=== PATIENT | female | born 1930 | race Caucasian/White ===

== ENCOUNTER 2016-10-01 13:00 | Outpatient (CLI) | payer MEDICARE, OTHER ==
--- NOTE | 2016-10-01 22:28 | CONSULTATION NOTE ---
Palliative Care Consultation - Referral Referring Provider: Jessica TORREZ Time of Visit: [id number] Referral setting: Assisted living (Patient is seen at [facility] which is an assisted living for Dementia, it is an impossible task to get her out of facililty currently with agitation 2 to dementia) Referral Reason: Dementia with behavioral disturbances - Information Sources Records Reviewed: RN notes reviewed, Old records reviewed History obtained from: Family (Daughter Barbara provided most of the information) Exam limitations: Clinical condition (Patient with agitation, refusing to allow physical exam "go away") - History of Present Illness Brief History of Present Illness: This is an 85 year old woman with progressive dementia with behavioral disturbances who has been at [facility] dementia care for about a year. Daughter has been overseeing and managing her care related this for about 10 years, and sees significant decline both functional and cognitive over the year necessitating placement here, and most acutely over the last several weeks. As part of her journey, she suspect she has had underlying depression for years, even as a young woman and had been well functioning with support of her . In 2006 with the decline of her it had become apparent she was having problems and they both moved to [place] in 2007, where they were for about 2 years. She had some episode described at "psychotic break" and was hospitalized, this included leaving with the car, hallucinations, and though declined psych admit was at that time put on risperadone.. They lived [place] at [place] [facility], until he in 2012 with hospice. She was seen by a neurologist that titrated her off the risperadone and used prazosin, which made a significant difference for her, she was able to participate in adult day program "[facility]", she really enjoys music, and actually able to ride the paratransit there. They moved her back to [place] with the hope to improve her socialization (experiencing many deaths/loss) at [facility], but she continued to decline, was having more hallucinations, but did respond to increased in prazosin, but with increased care needs moved into [facility]. Unfortunately with disease progression, rarely recognizes daughter, and at times sees her as "responsible for all the bad things". She is often cooperative for Memo her FRANCA. She has had a recent fall, intake has been less, behaviors have been escalating as far as agitation, not letting staff do personal care, and easily agitated when approached with conversation. She does have very poor hearing and cataracts so is often "startled" and unable to center herself in her environment. Daughter feels patient responded badly to antipsychotics in past, has had some improvement on increase prazosin, has not been on lorazepam recently but would like to avoid if possible. Medical/Surgical History - Past Medical History Cardiovascular: reports: Hypertension Respiratory: reports: None Neuro: reports: Dementia (See hpi) Endocrine/Autoimmune: reports: None GI: reports: None LEATHER ETCHER: reports: None : reports: Incontinence HEENT: reports: Chronic vision loss, Dental implants Psych: reports: Depression, Anxiety Musculoskeletal: reports: Osteoarthritis Derm: reports: None MRSA Hx?: No - Past Surgical History /LEATHER ETCHER: reports: Hysterectomy Cardiovascular: reports: Coronary stent - Substance History Use: Uses substance without health or social issues: Tobacco (quit 1969), Alcohol (rarely in past, none currently) Social History - Living Situation Living arrangement: Assisted living (has been at [facility] for about a year) Living Situation: With caregiver(s) Support System: Daughter Barbara who is a small engine trainer with dementia/Crystal Salinas has good understanding of mother's disease, she oversees her care here on [facility]. Has four children Family History - Family History Family History: Mother: , Father: , [place] (age 52), Sister: , Cancer, Brother: , Cancer, Other family: , COPD/ Emphysema Medications/Allergies - Medications Home Medications: Ambulatory Orders Medication Instructions Recorded Confirmed Acetaminophen 2 tab PO Q6HR PRN 10/01/16 10/01/16 Acetaminophen 500 mg PO TID 10/01/16 10/01/16 Aspirin 81 mg PO DAILY 10/01/16 10/01/16 Bisacodyl Supp [Dulcolax Supp] 1 supp GA DAILY 10/01/16 10/01/16 Loperamide HCl [Loperamide] 2 mg PO BID 10/01/16 10/01/16 Mag Hydrox/Al Hydrox/Simeth 30 ml PO Q4HR PRN 10/01/16 10/01/16 [Antacid Suspension] Polyethylene Glycol 3350 [Miralax] 0.25 appful PO DAILY 10/01/16 10/01/16 Prazosin HCl 2 mg PO TID 10/01/16 10/01/16 - Allergies Allergies/Adverse Reactions: Allergies Allergy/AdvReac Type Severity Reaction Status Date / Time simvastatin Allergy Unknown Verified 10/02/16 06:06 Review of Systems - Constitutional Constitutional: reports: Weakness, Poor appetite, Weight loss - Eyes Eyes: reports: Vision loss, Dipolpia (due to cataracts) - Ears, Nose & Throat Ears, Nose & Throat: reports: Hearing loss - Cardiovascular Cariovascular: reports: Syncope, Decr. exercise tolerance. denies: Chest pain - Respiratory Respiratory: reports: SOB with exertion. denies: Cough - Gastrointestinal Gastrointestinal: reports: Constipation, Poor appetite - Genitourinary Genitourinary: reports: Incontinence - Musculoskeletal Musculoskeletal: reports: Stiffness (left let), Limited range of motion (left arm), Muscle weakness - Integumentary Integumentary: reports: Dryness, Other (difficulty getting to shower) - Neurological Neurological: reports: General weakness, Memory problems - Psychiatric Psychiatric: reports: Depression, Anxiety, Hallucinations - Endocrine Endocrine: reports: Intolerance to cold - Hematologic/Lymphatic Hematologic/Lymphatic: denies: Recurrent infections - All Other Systems All Other Systems: reports: Reviewed and negative Physical Examination - Physical Exam General Appearance: positive: Mild distress, Anxious (would not cooperate with vital signs wanted me to "go away") Eyes Bilateral: positive: Other (difficulty focusing on me) ENT: positive: Dry mucous membranes Neck: positive: Trachea midline Respiratory: positive: Other (unable to listen, appeared increase breathlessness with more exertion) Cardiovascular: positive: Regular rate & rhythm (radially) Abdomen: positive: Other (flat) Skin: positive: Pallor, Dryness, Other (hair unwashed) Extremities: positive: Other (patient in bed, would not get up. Moved in bed and extremeties. Staff reports she is able to walk short distances to the table) . negative: No pedal edema Neurologic/Psychiatric: positive: Disoriented to person, Disoriented to place, Disoriented to time, Depressed mood/affect, Other (redirected and attempted to engage several times, focused on daughter "coming" she was not present for the exam and she needed to nap. When distracted did sing for me, talked about daughter's singing, denied any problems other than i was botheringher) Palliative Care - POLST Patient has POLST: Yes POLST Status: DNR, Comfort Measures (Want to avoid hospitalization if at all possible) Pain: Comment (unknown, but does appear stiff,will trial acetaminophen) Drowsiness: Moderate (4-6), Comment (staff report sleeping more going to be late , up late and more napping) Anorexia: Moderate (4-6) (eating less per staff) Constipation: Yes (has needed suppositories) Feelings of wellbeing/Perceived Quality of Life: Worsening (per daughter's perception) Performance Status: Patient with recent fall, has been walking shorter distances, does at time toilet self. Perception of staff and daughter much weaker over last several months - Palliative Care Discussion: Surrogate decision maker [Barbara Reeder, daughter]. Patient/Family understanding of the illness [Daughter very familiar with expected course, though at one point thought would last for years, see imminent decline coming]. Information preferences [Likes to be included in all decisions/discussions ( daugher)]. Most important goals [Patient experiences as little distress as possible, focus on comfort, keep out of hospital]. Patient/Family concerns [ Staffing and support for approaching her difficult behaviors]. Family conference Met with Barbara and She SCHWARTZ, reviewed course of illness, goals for her mother and concerns. Redid the POLST with including goal statement. At end of life, would like hospice there at facility, that is one of the reasons they picked [facility], she feels like it is a good fit.. Impression and Recommendations - Palliative Care Impression: This is a 85 year old woman with dementia and behavioral disturbances, manifested by escalating anxiety, agitation, some hallucinations/delusions presenting now with functional decline, recent fall, and weight loss. Recent adjustment of medications has helped with some behaviors, remains high risk for falls due to weakness and impulsivity, and difficulty with environment due to hearing/vision loss. Daughters goals are to focus on comfort, avoid hospitalization, and keep her safe in current setting. Recommendations/Counseling Done: 1. Dementia with behavioral disturbances, currently on prazosin 2 mg TID. Daughter does not feel antipsychotics have been helpful for mother, did introduce "rescue" medications for managing behavioral bursts in "tool box", has used lorazepam in past for anxiety without much effect, but suspect may be of help in current setting use intermittently or haldol. Will continue to evaluate and possibly consider. 2. Constipation. will add small amount of Miralax, suspect less intake, protien shakes, decreased activity adding to risk factors. Ordered 1/4 Miralax capful daily. 3. Medication Review. Focus on pill burden, daughter in agreement to discontinue pravastatin, calcium. 4. Left sided stiffness. Given patient's inabililty to describe discomfort, will trial TID APAP 500 mg. 5. Weigh loss. Have started TID health shakes which she is taking most times, staff encourage intake but note less. 6. Advanced care planning. Patient's greatest risk factor related to prognosis is her fall risk and sequela of a fall. Very little to minimize this as patient still ambulatory, would not be able to manage walker. 7. Anxiety. Patient has loved music programs in past, will make volunteer referral, daughter reports also may respond to ict business development manager, will put him on her rounds. Thank you Jessica Ramirez for asking the Palliative Care Consult team to participate in the care of your patient, will follow alongside though patient very resistent to engaging today, will continues to establish rapport and provide support to patient and family. Time Spent: 75 minutes with greater than 50% of this done in counseling for advanced care planning, symptom management and coordination of care with facility staff/team.
== END 2016-10-01 13:01 | disposition home or self-care (01) ==
LOC: PC 13:00
PROVIDERS: ATTEND Nurse Practitioner Adult Health
DX: Z51.5 Encounter for palliative care (principal); F03.91 Unspecified dementia, unspecified severity, with behavioral disturbance; K59.00 Constipation, unspecified; R29.898 Other symptoms and signs involving the musculoskeletal system; R63.4 Abnormal weight loss; F41.9 Anxiety disorder, unspecified; Z66 Do not resuscitate; H91.90 Unspecified hearing loss, unspecified ear; H54.7 Unspecified visual loss; R53.81 Other malaise; Z91.81 History of falling

== ENCOUNTER 2016-10-21 13:30 | Outpatient (CLI) | payer MEDICARE, OTHER ==
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
== END 2016-10-21 13:31 | disposition home or self-care (01) ==
LOC: PC 13:30
PROVIDERS: ATTEND Nurse Practitioner Adult Health
DX: Z51.5 Encounter for palliative care (principal); F41.9 Anxiety disorder, unspecified; F03.91 Unspecified dementia, unspecified severity, with behavioral disturbance; Z79.82 Long term (current) use of aspirin; R53.1 Weakness; H91.90 Unspecified hearing loss, unspecified ear; R32 Unspecified urinary incontinence; M54.9 Dorsalgia, unspecified; Z66 Do not resuscitate

== ENCOUNTER 2016-11-27 13:00 | Outpatient (CLI) | payer MEDICARE, OTHER ==
--- NOTE | 2016-11-30 16:07 | PROVIDER PROGRESS NOTE ---
Palliative Care Follow Up - Referral Referring Provider: Jessica Ramirez PA-C Time of Visit: 11/27/2016 [id number] Referral setting: Assisted living (patient seen in her home setting which is [facility]; memory care unit. It is a taxing and considerable effort for her to leave the facility related to her dementia and behaviors) - Information Sources Records Reviewed: RN notes reviewed History obtained from: Caregiver (Care facility staff) Exam limitations: Clinical condition (patient easily agitated with exam) - History of Present Illness Update Brief HPI Update: This is an 86 year old woman with progressive dementia and escalating neuropsychiatric behaviors, had initiated seroquel with some initial improvement of anxiety and agitation and personal care. Have titrated up slowly with last increase Friday up to 25 mg BID, consult with pharmacist, now titrating down prazosin as was being used for her dementia. She does have history of hypertension, so may not totally titrate off. Blood pressures that have been able to obtain have been good, and she has had no falls from dizzyness. Today patient speaking in full sentences, some pressured speech and stuttering. Thoughts with some string of pattern with discussing her history of her parents, attempted to direct to her own life review, more difficult. Staff report unclear if going to make a difference in new pod, patients in this pod though are less active and more likely not to engage in confrontation. In discussion, and exam, there was not hallucinations/delusions expressed as before. Staff report patient is sleeping through the night, had horrible time though with shower this am but in the end "it felt good", she looks much hand bobbin cleaner and comfortable today with hair washed. Social History - Living Situation Living arrangement: Assisted living (has been at [facility] for about a year) Support System: Daughter Ivanna comes weekly to visit Medications/Allergies - Medications Home Medications: Ambulatory Orders Medication Instructions Recorded Confirmed Acetaminophen 2 tab PO Q6HR PRN 10/01/16 11/30/16 Acetaminophen 500 mg PO TID 10/01/16 11/30/16 Aspirin 81 mg PO DAILY 10/01/16 11/30/16 Bisacodyl Supp [Dulcolax Supp] 1 supp ID DAILY 10/01/16 11/30/16 Loperamide HCl [Loperamide] 2 mg PO BID 10/01/16 11/30/16 Mag Hydrox/Aluminum Hyd/Simeth 30 ml PO Q4HR PRN 10/01/16 11/30/16 [Antacid Suspension] Polyethylene Glycol 3350 [Miralax] 0.25 appful PO DAILY 10/01/16 11/30/16 Prazosin HCl 2 mg PO DAILY 10/01/16 11/30/16 QUEtiapine [SEROquel] 1 tab PO BID 10/23/16 11/30/16 - Allergies Allergies/Adverse Reactions: Allergies Allergy/AdvReac Type Severity Reaction Status Date / Time simvastatin Allergy Unknown Verified 10/02/16 06:06 Review of Systems - Constitutional Constitutional: reports: Other (patient has remained weight neutral) - Eyes Eyes: reports: Vision loss - Ears, Nose & Throat Ears, Nose & Throat: reports: Other (caregivers report can usually talk into brushing teeth) - Cardiovascular Cariovascular: denies: Chest pain - Genitourinary Genitourinary: reports: Incontinence - Neurological Neurological: reports: Memory problems - Psychiatric Psychiatric: reports: Anxiety, Delusions, Hallucinations - Hematologic/Lymphatic Hematologic/Lymphatic: denies: Recurrent infections - Other Findings Other Findings: Patient able to answer yes/no questions but no in context of her history or recall Physical Examination - Vital Signs Temperature: 97.6 C Pulse Rate: 56 Respiratory Rate: 18 O2 Saturation: 97 (ra @ rest) - Physical Exam General Appearance: positive: Moderate distress (patient easily agitated; attempting to redirect and engage), Anxious Eyes Bilateral: positive: Conjunctivae nml ENT: positive: No signs of dehydration Neck: positive: Trachea midline Respiratory: positive: No respiratory distress Cardiovascular: positive: Regular rate & rhythm Abdomen: positive: Nml bowel sounds, No distention Skin: positive: Pallor, Dryness Extremities: positive: No pedal edema, Other (upper and lower extremity wasting noted; staying weight neutral 130 /) Neurologic/Psychiatric: positive: Disoriented to person, Disoriented to place, Disoriented to time Palliative Care - POLST Patient has POLST: Yes POLST Status: DNR, Comfort Measures Performance Status: Patient able to ambulate independently; no falls per staff. Behavioral issues limit the ability to bath patient on a regular basis as well as change briefs; "screams" and is uncooperative with staff and can strike out - Palliative Care Discussion: Surrogate decision maker- daughter Ivanna Huynh [phone] Working with staff to try and evaluate response to new titration of seroquel and safely titrate down Prazosin. Complicated to monitor as patient often will not allow vital signs as well as personal care. Patients behaviors very distressing to herself as she gets easily agitated with her environment and with caregivers attempting to provide personal care. Family concern regarding patient's previous experiences with antipsychotics, but recognized as disease progresses need to address at a pharmacological level as behaviors escalating and put patient/staff/ other patients at risk. Plan to titrate slowly to effect , on initiation and titration some improvement noted. But now problematic again. Just moved to new pod, with the goal to decrease the stimulation and confrontation. Patient just had briefs changed, was pretty wound up. Discussion though was able to redirect, very interested in talking about her parents/college/ family though information disjointed. Patient when asked what she worried about doesn' t like being talked to like a "little girl". She told me "I am going to sometime soon"; "I have had a wonderful life"; "I have done so many things". When asked if she was afraid or worrying about any thing "afraid of it? why? every one does it". Daughter visited her on Friday, felt she was a bit more vacant, had talked to staff about moving her into less disturbing environment. Impression and Recommendations - Palliative Care Impression: This s a complex 86 year old woman with dementia with behavioral disturbances, which appear distressing to her, though the hallucinations and distress may be showing some improvement. Her response to personal care remains problematic both for her safety and that of staff. Patient has not demonstrated any adverse effects up to this point. Recommendations/Counseling Done: 1. Dementia with behavioral disturbances. Seroquel titrated up to 25 mg BID Friday, too soon to see if need to further titrate, will see if changing environment/pod will help as well. Needing to titrate Prazosin down, will attempt to evaluate blood pressure as has history of HTN. Prazosin 2 mg daily new dosing ordered today. 2. Advanced care planning. POLST in place, follow up with daughter on current observations and medication changes. Goals remain to decrease her distress and anxiety, improve safety, and meet personal care needs. Time Spent: 30 minutes with greater than 50% done in counseling with staff regarding observations of behavior, safety concerns, coordination of care.
== END 2016-11-27 13:01 | disposition home or self-care (01) ==
LOC: PC 13:00
PROVIDERS: ATTEND Nurse Practitioner Adult Health
DX: Z51.5 Encounter for palliative care (principal); F03.91 Unspecified dementia, unspecified severity, with behavioral disturbance; F41.9 Anxiety disorder, unspecified; R45.1 Restlessness and agitation; I10 Essential (primary) hypertension; Z79.82 Long term (current) use of aspirin; R32 Unspecified urinary incontinence; F22 Delusional disorders; Z66 Do not resuscitate

== ENCOUNTER 2016-12-19 11:00 | Outpatient (CLI) | payer MEDICARE, OTHER ==
--- NOTE | 2016-12-19 18:06 | CONSULTATION NOTE ---
Palliative Care Follow Up - Referral Referring Provider: Jessica MENESES Time of Visit: Referral setting: Assisted living Referral Reason: Dementia with Behavioral Disturbances - Information Sources Records reviewed: RN notes reviewed, Previous records reviewed History/Review of Systems obtained from: Family (met with KATHYA Hampton), Caregiver ( Input from caregivers) Exam limitations: Clinical condition (patient very agitated and uncooperative today; distressed we are "bothering" her) - History of Present Illness Update Brief HPI Update: This is an 86-year-old woman with progressive dementia and escalating neuropsychiatric behaviors, we had initiated Seroquel with some initial improvement of anxiety and agitation but this has continued to deteriorate. She has been titrated up to 25 mg twice daily, did hold on further titration awaiting to see because they had relocated her into another POD. She is continued to decompensate, staff are having difficulty approaching her for personal care, patient presents with severe anxiety and agitation today despite being accompanied by a family member. Did try several times to engage and redirect, the patient unwilling to allow me to physically touch her. Did spend time both with Memo, her son-in-law, and was staff and attempts to examine her.She had failed to stabilize our respond to the increase in prazosin. Daughter reports in past is done fairly poorly with risperidone. This leaves is very little to work with. Family has been hesitant to allow medications to impact her level of alertness, but are coming to the realization that to be able to manage her we are going to need to engage some tools. Social History - Living Situation Living arrangement: Assisted living (has been at assisted living memory care unit, [facility] about a year) Support System: Daughter Ivanna oversees mothers care, KATHYA Hampton is "spelling" her currently, and is here for visit today. Medications/Allergies - Medications Home Medications: Ambulatory Orders Medication Instructions Recorded Confirmed Acetaminophen 2 tab PO Q6HR PRN 10/01/16 11/30/16 Acetaminophen 500 mg PO TID 10/01/16 11/30/16 Aspirin 81 mg PO DAILY 10/01/16 11/30/16 Bisacodyl Supp [Dulcolax Supp] 1 supp [place] DAILY PRN 10/01/16 11/30/16 Loperamide HCl [Loperamide] 2 mg PO BID PRN 10/01/16 11/30/16 Mag Hydrox/Aluminum Hyd/Simeth 30 ml PO Q4HR 10/01/16 11/30/16 [Antacid Suspension] Polyethylene Glycol 3350 [Miralax] 8.5 appful PO DAILY 10/01/16 12/19/16 Prazosin HCl 2 mg PO DAILY 10/01/16 12/19/16 QUEtiapine [SEROquel] 1 tab PO QDBREAKFAST 10/23/16 12/19/16 OLANZapine ODT [Zyprexa Odt] 2.5 mg PO QDDINNER 12/19/16 12/19/16 - Allergies Allergies/Adverse Reactions: Allergies Allergy/AdvReac Type Severity Reaction Status Date / Time simvastatin Allergy Unknown Verified 10/02/16 06:06 Review of Systems - Constitutional Constitutional: reports: Weight loss (12/03 124 12/17 123.6) - Eyes Eyes: reports: Vision loss - Ears, Nose & Throat Ears, Nose & Throat: reports: Hearing loss - Psychiatric Psychiatric: reports: Anxiety, Delusions, Hallucinations, Behavior disturbances - Endocrine Endocrine: reports: Intolerance to cold - Other Findings Other Findings: [facility] but has not had any other falls ROS limited as patient not cooperative, staff noting increasing behaviors-not allowing personal care without distress. Physical Exam - Physical Exam General Appearance: positive: Moderate distress, Anxious, Other (wanting to go to sleep; laying in another residents bed won't be redirected; staff allowing her to "nap") Eyes Bilateral: positive: Conjunctivae nml ENT: positive: Dry mucous membranes (patient is taking "health shakes") Neck: positive: No JVD, Trachea midline Cardiovascular: positive: Tachycardia (radial weak at 88; would not let me take b/p; staff try b/p 135/76 12/19) Respiratory: positive: No respiratory distress Abdomen: positive: Soft Skin: positive: Pallor Extremities: positive: Other (staff report still walking; moves all extremities on exam) Neurologic/Psychiatric: positive: Depressed mood/affect, Other (wanting to be "left alone"; KATHYA Memo not able to settle down either; denies "any problems" nonsensical speech; some full sentences but not in response to questions; has been mostly in room per staff though has fluctuating days; behaviors have escalated over week) Palliative Care - POLST Patient has POLST: Yes POLST Status: DNR, Comfort Measures Pain: Comment (denies pain; staff have not noted any pain behaviors) Anxiety: Comment (very anxious and agitated during visit; reapproached twice) Anorexia: Weight loss (not wanting to eat meals; likes health shakes; feeds self but rarely sits down to eat) Sleep: Variable sleep pattern Constipation: Comment (unknown) Feelings of wellbeing/Perceived Quality of Life: Poor, Worsening Performance Status: Patient dependent on staff for all ADLs, she is a self feed though is mostly just taking health shakes. She is quite resistant to personal care, and also needs to be reapproached to change her briefs - Palliative Care Discussion: Patient continues to decline both functionally and cognitively. She is presenting with escalating neuropsychiatric behaviors, with increased agitation , anxiety, hallucinations, and paranoia. Staff do attempt to reapproach multiple times particular around personal care. Patient is quite agitated at time of visit, did have family conference with son-in-law Memo. There was concern about overmedicating, but do recognize are going to need to engage some tools to be able to meet her care needs both for safety and for comfort. She has had ongoing weight loss, staff reported would be more so if she were not liking the health shakes. It has been about 9% over 6 month. Her biggest risk most likely the sequela of a fall and/or infection. I did initiate conversation with her son-in-law regarding her goals of care, to focus on comfort, and suggested we start considering transitioning to hospice. Had agreed with the hospice medical surgical tech would attempt to manage behaviors with further medication adjustments, but if continues to decline would consider her a hospice candidate.This could be consistent with family goals. The hope is not to have her hospitalized or sent to the ED. Impression and Recommendations - Palliative Care Impression: This is a very complex 86-year-old woman with dementia with behavioral disturbances, underlying long-term mental health and neuropsych issues, had initially shown some response to Seroquel, but does appear to continue to to decompensate. Her response to personal care remains problematic both for her safety and that the staff, and family willing to look at further medication as tools to manage her behaviors. Recommendations/Counseling Done: 1. Dementia with behavioral disturbances. Did discuss with pharmacist Vero , about transitioning to olanzapine, patient does not appear to be responding to Seroquel. She also has a history of using risperidone though this was somewhat distant, with negative effects per family's perception. Initially was told did not need to titrate medications, did receive call back and did write out short taper schedule. Also did initiate Lorazepam 0.25 mg every 6 hours as needed for escalating agitation and anxiety for staff to use. Did review risks and benefits with the family regarding risk of falls, sedation, but also reiterated that she was having fairly consistent functional and cognitive decline. 2. Hypertension. Patient is quite resistant to having blood pressure taken, it does appear that she is tolerating the prazosin 2 mg daily with adequate control. 3. Weight loss. She has present with almost 10% weight loss, of concern, patient currently getting health shakes. Related to her behaviors she is unwilling and unable to participate in mealtimes. This is reviewed with her family, they are aware of her ongoing decline. 4. Advanced care planning pulsed in place, follow-up with son-in-law Memo who is present for visit, reviewed goals of care which was to decrease her decrease to stress and anxiety, improve safety, meet her personal care needs. We did initiate conversation the patient continued with functional and cognitive decline, no response to medications, will look at transitioning to hospice in the next couple weeks. Time Spent: 45 minutes with greater than 50% of this done and coordination of care with clinical staff and family, counseling regarding goals of care and management with risks and benefits of antipsychotics as well as benzodiazipines.
== END 2016-12-19 11:01 | disposition home or self-care (01) ==
LOC: PC 11:00
PROVIDERS: ATTEND Nurse Practitioner Adult Health
DX: Z51.5 Encounter for palliative care (principal); F03.91 Unspecified dementia, unspecified severity, with behavioral disturbance; I10 Essential (primary) hypertension; R63.4 Abnormal weight loss; Z79.899 Other long term (current) drug therapy; Z79.82 Long term (current) use of aspirin; Z66 Do not resuscitate; Z91.81 History of falling

== ENCOUNTER 2017-01-02 13:00 | Outpatient (CLI) | payer MEDICARE, OTHER ==
--- NOTE | 2017-01-02 15:27 | CONSULTATION NOTE ---
Palliative Care Follow Up - Referral Referring Provider: Jessica Hopson PA-C Time of Visit: [id number] Referral setting: Assisted living (patient seen at [facility] for Dementia; it is a considerable and taxing effort for her to leave the unit related to her paranoia and anxiety) Referral Reason: Dementia with Behavioral Disturbances - Information Sources Records reviewed: RN notes reviewed History/Review of Systems obtained from: Caregiver (limited; daughter left information; checked in with clinical staff) Exam limitations: Clinical condition (dementia and high anxiety at time of visit ) - History of Present Illness Update Brief HPI Update: This is an 86-year-old woman with progressive dementia and escalating psychiatric behaviors, including anxiety, agitation, increased paranoia, hallucinations and delusions. She continued to have increasing resistance to personal care, and was titrated off her prazosin, and initiated on Seroquel. Initially she did have some improvement with agitation and hallucinations, but continued to decompensate and family was quite concerned. I did try and switch her over an attempt to address her ongoing distress, with olanzapine, hoping this would help her appetite as well. Unfortunately patient is only at 2.5 mg, family is quite concerned and not wanting to titrate if possible. Will give it another week, but may need to titrate one more time to a therapeutic dose of at least 5 mg. Patient has had quite resistant symptoms over the years, and now is having difficulty participating in the evaluation, so unclear if we are providing more benefit than burden. Given concern for safety, patient not a allowing briefs changed. Have initiated Lorazepam 0.25 mg if needed to allow personal care. And has been used sparingly over the last week, with varying degrees of success, had a dose prior to my arrival this a.m., patient is not sedated nor appears to be responding. Patient continues with weight loss 122.2, but is taking health shakes. Find patient in her room, sitting on the bed, with rocking behaviors and word salad. In the context of diffuse sentences can make out, does appear to be having some hallucinations and delusions, and is somewhat distressed. Am concerned also that she does appear to have some left hip pain and discomfort, she is able to weight-bear though with some discomfort. Patient has not had a witnessed fall but is in obvious distress. Patient allowed only limited exam, I did assist her back to bed, and was comfortable by time finished my visit. Social History - Living Situation Living arrangement: Assisted living Support System: Patient's daughter Ivanna oversees her care, she does visit weekly. She is to receive a consultation with therapeutic touch therapist. With recent care conference, recognizing with her decline, it is difficult to meet her needs with her current behaviors. Is hoping staff will continue to work with Sunita both to keep her safe, but also minimize medication use. Medications/Allergies - Medications Home Medications: Ambulatory Orders Medication Instructions Recorded Confirmed Acetaminophen 1,000 mg PO TID 10/01/16 01/02/17 Aspirin 81 mg PO DAILY 10/01/16 01/02/17 Bisacodyl Supp [Dulcolax Supp] 1 supp VT DAILY PRN 10/01/16 01/02/17 Loperamide HCl [Loperamide] 2 mg PO BID PRN 10/01/16 01/02/17 Mag Hydrox/Aluminum Hyd/Simeth 30 ml PO Q4HR 10/01/16 01/02/17 [Antacid Suspension] Polyethylene Glycol 3350 [Miralax] 8.5 appful PO DAILY 10/01/16 01/02/17 Prazosin HCl 2 mg PO DAILY 10/01/16 01/02/17 OLANZapine ODT [Zyprexa Odt] 2.5 mg PO QDDINNER 12/19/16 01/02/17 Lorazepam [Lorazepam Intensol] 0.25 mg PO Q6HR PRN 01/02/17 01/02/17 - Allergies Allergies/Adverse Reactions: Allergies Allergy/AdvReac Type Severity Reaction Status Date / Time simvastatin Allergy Unknown Verified 10/02/16 06:06 Review of Systems - Constitutional Constitutional: reports: Weight loss (weight at 122.2; still taking the protien shakes with minimal resistance) - Eyes Eyes: reports: Vision loss - Ears, Nose & Throat Ears, Nose & Throat: reports: Hearing loss, Hearing aids, Other (unclear if having oral care done regulary because of patient's behaviors) - Gastrointestinal Gastrointestinal: reports: Poor appetite - Genitourinary Genitourinary: reports: Incontinence (very resistant to personal care) - Musculoskeletal Musculoskeletal: reports: Muscle weakness, Other (no one aware of any falls or injury patient able to lift right leg without pain or distress; lifted left leg with encouragement and resulted in pain behaviors and complaints) - Integumentary Integumentary: reports: Dryness - Neurological Neurological: reports: General weakness, Memory problems, Abnormal gait ( difficult to weight bear on left leg; shuffled) - Psychiatric Psychiatric: reports: Depression, Anxiety, Delusions (worsened with decrease of seroquel in the context of more persons who aren't there; more delusions when can make out word salad), Hallucinations, Behavior disturbances (have used lorazepam intermittently with help except for yesterday and today; won't allow personal care or change of depends) - Endocrine Endocrine: reports: Intolerance to cold - Hematologic/Lymphatic Hematologic/Lymphatic: denies: Recurrent infections - All Other Systems All Other Systems: reports: Reviewed and negative Physical Exam - Vital Signs Temperature: 97.8 C Pulse Rate: 76 Respiratory Rate: 18 O2 Saturation: 95 (ra @ rest) Blood Pressure: 126/76 (12/30) - Physical Exam General Appearance: positive: Moderate distress, Anxious Eyes Bilateral: positive: Other (eyes with some matting; periorbital edema) ENT: positive: Other (would not allow oral exam) Neck: positive: Trachea midline Cardiovascular: positive: Regular rate & rhythm Respiratory: positive: Diminished in bases. negative: Wheezes, Rales, Rhonchi Abdomen: positive: Soft, Nml bowel sounds Skin: positive: Pallor Extremities: positive: Pedal edema (trace up to ankles bilat=equal), Other ( tender to palpation left thigh; would not allow clothes removed for exam for injury; diff. with weightbearing on left though able with assistance; pain behaviors and complaints of pain pointed in buttocks area) Neurologic/Psychiatric: positive: Disoriented to person, Disoriented to place, Disoriented to time, Weakness, Unintelligible speech, Depressed mood/affect, Other (anxious and appears paranoid things "don't make sense" "really strange" "worried about it all" in response to what are you worried about) Palliative Care - POLST Patient has POLST: Yes POLST Status: DNR, Comfort Measures Pain: Pain worsening, Severity (mod/severe distress today though settled down before left with repositioning and bed rest; on TID APAP 500 mg) Tiredness/Fatigue: Comment (seems very tired and fatigued) Anxiety: Severe (7-10) Sleep: Variable sleep pattern Constipation: Comment (unknown) Feelings of wellbeing/Perceived Quality of Life: Worsening, Comment (this is daughter/moiz perception as well) Performance Status: Patient is less ambulatory, overall. She is dependent for bathing assistance and toileting. She will not allow assistance with eating, she is able to drink or shake independently. - Palliative Care Discussion: Unable to talk directly with the daughter, but did receive message in response to my questions. Have agreed at this point the burdens outweigh the benefits on x-ray. Will continue evaluated on a regular basis her discomfort, ongoing behavioral issues, and concerns about safety. Impression and Recommendations - Palliative Care Impression: This is an 86-year-old woman who is very complex, in the context of managing her behavioral disturbances. She does have underlying long-term mental health issues as well as neuropsychiatric behaviors. It is unclear if she has exacerbation of her osteoarthritis due to deconditioning and inactivity, or she has injured herself. In agreement with family burdens outweigh benefits at this point in time for further workup, will continue to evaluate. Recommendations/Counseling Done: 1. Left leg pain. Unclear regarding etiology. Will go ahead and increase her acetaminophen 500 mg to 1000 mg 3 times daily. Reviewed with staff if patient' s pain escalated or concerns to please contact myself or her PCP. 2. Dementia with behavioral disturbances patient currently on olanzapine 2.5 mg in the evening, most likely needs to have titrated to a therapeutic dose. Will defer to the family's wishes and await further titration. Staff do have Lorazepam 0.25 mg every 6 hours as needed for escalating agitation or anxiety, has had various degrees of success, will allow if no response after 1 hour to repeat and cases of severe agitation. 3. Weight loss. She does present with almost 10% weight loss, she is continued to get her health shakes so is staying stable at this point in time. She is unable or unwilling to participate in mealtimes secondary to her current behaviors. This fluctuates as well. 4. Advanced care planning. POLST in place with comfort measures and DO NOT RESUSCITATE. At this point in time, goals are to focus on comfort, if she has further decline we will consider transitioning to hospice. Time Spent: 45 minutes with greater than 50% of this done in counseling with staff and coordination of care regarding managing behaviors, concern for left leg pain, and anticipatory guidance.
== END 2017-01-02 13:01 | disposition home or self-care (01) ==
LOC: PC 13:00
PROVIDERS: ATTEND Nurse Practitioner Adult Health
DX: Z51.5 Encounter for palliative care (principal); M79.605 Pain in left leg; F03.91 Unspecified dementia, unspecified severity, with behavioral disturbance; R63.4 Abnormal weight loss; F41.9 Anxiety disorder, unspecified; F22 Delusional disorders; R45.1 Restlessness and agitation; Z79.82 Long term (current) use of aspirin; R32 Unspecified urinary incontinence; M62.81 Muscle weakness (generalized); F32.9 Major depressive disorder, single episode, unspecified; Z66 Do not resuscitate